=== PATIENT | male | born 2000 | race Hispanic/Latino ===

== ENCOUNTER 2019-01-01 09:29 | Day surgery (SDC) | payer OTHER ==
[2019-01-01] MEDS ORDERED: ADRENALIN ONE (10:39)
[2019-01-01] MEDS ORDERED: XYLOCAINE CARDIAC IV ONE (10:39)
[2019-01-01] MEDS ORDERED: PHENYLEPHRINE/NS Syringe 1,000 MCG/10 ML IV ONE (10:40)
[2019-01-01] MEDS ORDERED: ATROPINE 0.1% (CARDIAC) ONE (10:40)
[2019-01-01] MEDS ORDERED: NITROSTAT SL ONE (10:41)
[2019-01-01] MEDS ORDERED: NACL 0.9% 500 ML 500 ML IV SCH (11:00)
--- NOTE | 2019-01-01 11:35 | Short Stay Summary ---
Short Stay Documentation Date of service: 01/01/19 - History H&P: obtained from office - Allergies and Medications Current Medications: Allergies Sulfa (Sulfonamide Antibiotics) Allergy (Verified 01/01/19 10:24) EXTREME VOMITING Active Medications Sodium Chloride (Nacl 0.9% 500 Ml) 500 mls @ 50 mls/hr IV DIRECT ARMANDO - Physical exam General appearance: no acute distress Integumentary: no rash HEENT: Atraumatic Lungs: Clear to auscultation Breasts: deferred Heart: Regular rate Gastrointestinal: normal Male Genitourinary: deferred Female Genitourinary: deferred Rectal Exam: deferred Extremities: no ischemia Neurological: Normal gait - Brief post op/procedure progress note Date of procedure: 01/01/19 Pre-op diagnosis: Syncope Post-op diagnosis: same Procedure: TTT Anesthesia: none Findings: See report Surgeon: DANIEL HASSAN Estimated blood loss: none Pathology: none Condition: stable - Hospital course Hospital course: Uneventful - Disposition Condition at discharge: Good Disposition: DC-01 TO HOME OR SELFCARE Short Stay Discharge Plan Activity: advance as tolerated Weight Bearing Status: Weight Bear as Tolerated Diet: regular Follow up with: BELEN JEAN MD [Primary Care Provider] - 7 Days
[2019-01-01 12:18] VITALS: BP 107/62
--- NOTE | 2019-01-01 22:24 | Procedure Note ---
TILT-TABLE TEST. INDICATION: Syncope. ORDERING PHYSICIAN: Dr. Rodriguez. FINDINGS: After obtaining the consent, the patient was brought to the production laborer area and secured to the tilt table test. Supine blood pressure was 102/61 with a heart rate of 93 beats per minute, sinus rhythm. The patient was tilted to 85 degrees from horizontal. The patient was kept in the upright position for 10 minutes. After 10 minutes, his blood pressure was 113/78 with a heart rate of 96 beats per minute, sinus rhythm. The patient was subsequently given 0.4 mg of sublingual nitroglycerin. Five minutes after the nitroglycerin intake, heart rate went up to 145, sinus tachycardia with a lowest recorded blood pressure of 94/62. There were no episodes of syncope. The patient denied any symptoms. Ten minutes after the nitroglycerin was given, his blood pressure was 122/53 and the heart rate was 163 with no evidence of syncope. The telemetry showed only evidence of sinus tachycardia. The patient was then tilted back to horizontal with gradual return of his heart rate to pre-procedure levels. IMPRESSION: This is a negative tilt table test with no evidence of a cardioinhibitory or vasodepressor response to nitroglycerin. 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 JOB# [id number] ITZEL/ELIUD
== END 2019-01-01 09:30 | disposition home or self-care (01) ==
LOC: CATHLABREC 09:29
PROVIDERS: ATTEND Internal Medicine
DX: R55 Syncope and collapse (principal); J40 Bronchitis, not specified as acute or chronic; Z88.2 Allergy status to sulfonamides; Z79.899 Other long term (current) drug therapy; Z82.49 Family history of ischemic heart disease and other diseases of the circulatory system
CPT/HCPCS: 93660; J7040; J0171; J0461; J2001; J2370